=== PATIENT | female | born 1940 | race Caucasian/White ===

== ENCOUNTER 2022-04-03 12:25 | Emergency (ER) | payer MEDICARE, SELFPAY ==
--- NOTE | ~2022-04-03 | XR_ITS ---
Right Knee Technique: AP, lateral, and oblique views were obtained. Clinical History: Pain Findings: No fracture or dislocation is seen. Total knee arthroplasty hardware in place. No hardware convocation evident. Lateral extensive subcutaneous soft tissue edema. No joint effusion is seen. Impression: No acute fracture or hardware complication. Total knee arthroplasty hardware present. Probable diffuse subcutaneous soft tissue edema. Reviewed, dictated and finalized at [facility]. [employer]PARATION [employer] Impression: No acute fracture or hardware complication. Total knee arthroplasty hardware present. Probable diffuse subcutaneous soft tissue edema.
[2022-04-03 12:42] VITALS: BP 125/78; PULSE 72; RESP 16; TEMP 36.6; O2SAT 100
--- NOTE | 2022-04-03 17:00 | ED.EXTPRO ---
HPI - Extremity Problem General Chief complaint: Extremity Problem,Nontraumatic Stated complaint: pain in right leg Time Seen by Provider: 04/03/22 16:30 History of Present Illness HPI Narrative: Pt presents with progressively worsening pain in her right knee over the last moth or so. Pt denies injury. Pt says she has trouble getting around with walker at home due to pain. 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 Pt denies fever or redness to knee. Related Data Home Medications Medication Instructions Recorded Confirmed amlodipine 2.5 mg tablet mg 04/03/22 carvedilol 3.125 mg tablet mg 04/03/22 furosemide 20 mg tablet mg 04/03/22 04/03/22 levothyroxine 50 mcg tablet mcg 04/03/22 meloxicam 7.5 mg tablet mg 04/03/22 metformin 500 mg tablet,extended mg PO 04/03/22 release 24 hr potassium chloride 10 mEq meq PO 04/03/22 tablet,extended release pravastatin 40 mg tablet mg 04/03/22 ropinirole 1 mg tablet mg 04/03/22 sertraline 50 mg tablet mg 04/03/22 Allergies Allergy/AdvReac Type Severity Reaction Status Date / Time No Known Allergies Allergy Unknown Verified 04/03/22 15:30 Review of Systems Review of Systems: All systems reviewed & are unremarkable except as noted in HPI and below Exam Const: General: no acute distress Nutritional Appearance: well nourished Orientation/consciousness: patient oriented x3 Limitations: no limitations Resp: Effort & Inspection: normal respiratory effort Auscultation: clear to auscultation bilaterally Cardio: Rate: regular rate Rhythm: regular rhythm GI: GI Palp: Yes Soft to palpation Auscultation: normal bowel sounds Skin: General skin exam: normal color Rashes: no rashes Neuro: General: patient oriented x3 Cranial nerves: Yes Nystagmus not present Speech: normal speech Extrem: General: no pedal edema Other: soft tissue swelling to right knee no erythema Psych: Mental Status: mental status grossly normal Affect: normal affect Attitude: cooperative Course Course Emergency Course: x rays normal. pt improved somewhat with pain shot and wants to go home. talked to dr larson and said would be more appropriate for her to see someone closer to home or who specializes in total knee replacements. Vital Signs Vital signs: Vital Signs Temperature 98 F 04/03/22 12:42 Pulse Rate 72 04/03/22 12:42 Respiratory Rate 16 04/03/22 12:42 Blood Pressure 125/78 04/03/22 12:42 Pulse Oximetry 100 04/03/22 12:42 Oxygen Delivery Room Air 04/03/22 12:42 Temperature 98 F 04/03/22 12:42 Pulse Rate 100 04/03/22 19:00 Respiratory Rate 16 04/03/22 19:00 Blood Pressure 138/85 04/03/22 19:00 Pulse Oximetry 97 04/03/22 19:00 Oxygen Delivery Room Air 04/03/22 12:42 Discharge Plan Discharge Clinical Impression: Acute pain of right knee Patient Disposition: Home, Self-Care Condition: Improved Instructions: Antibiotic Form, Knee Pain (ED), Arthralgia (ED) Additional Instructions: call pcp tomorrow for referral to orthopedist Prescriptions: New hydrocodone-acetaminophen 5-325 mg tablet 1 tablet PO Q6H PRN (Reason: pain) Qty: 14 0RF No Action ropinirole 1 mg tablet pravastatin 40 mg tablet amlodipine 2.5 mg tablet potassium chloride 10 mEq tablet extended release PO carvedilol 3.125 mg tablet meloxicam 7.5 mg tablet levothyroxine 50 mcg tablet furosemide 20 mg tablet metformin 500 mg tablet extended release 24 hr PO sertraline 50 mg tablet Follow-up/Referrals: Doug,HARVEY Small [Primary Care Provider] -
[2022-04-03] MEDS: HYDROmorphone HCL INJ (*CRX) 1 MG/ML SYR IM (18:27)
[2022-04-03 19:00] VITALS: BP 138/85; PULSE 100; RESP 16; O2SAT 97
== END 2022-04-03 19:00 | disposition home or self-care (01) ==
PROVIDERS: Emergency Provider Emergency Medicine; PCP Registered Nurse
DX: M25.561 Pain in right knee (principal)
CPT/HCPCS: 73564; 96372; 99283; J1170